=== PATIENT | male | born 1975 | race Caucasian/White ===

== ENCOUNTER 2017-07-24 13:36 | Emergency (ER) | payer MEDICARE, MEDICAID ==
[2017-07-24 14:07] VITALS: BP 147/95
--- NOTE | 2017-07-24 14:14 | UC ---
Dental HPI - HPI Summary HPI Summary: 42 year old male presents with facial pain. c/o L side of face swelling and pain x 1 week. States feels like tooth and ear ache- but has dentures. He does smoke at this time. has had worsened cough as well lately. [ End ] - History of Current Complaint Chief Complaint: UCGeneralIllness Stated Complaint: BUMP ON FACE Time Seen by Provider: 07/24/17 14:08 Hx Obtained From: Patient Onset/Duration: Gradual Onset Pain Scale Used: 0-10 Numeric - 7 Aggravating: Chewing Alleviating: Nothing - Allergies/Home Medications Allergies/Adverse Reactions: Allergies Allergy/AdvReac Type Severity Reaction Status Date / Time No Known Allergies Allergy Verified 07/24/17 14:02 Home Medications: Home Medications Ketorolac TAB * [Toradol TAB *] 10 mg PO Q6H PRN 07/24/17 [History Confirmed ] PMH/Surg Hx/FS Hx/Imm Hx Previously Healthy: Yes Respiratory History: COPD, Bronchitis, Pneumonia - Surgical History Surgical History: None - Family History Known Family History: Positive: Cardiac Disease, Hypertension, Diabetes - Social History Lives: With Family Alcohol Use: None Substance Use Type: Marijuana Substance Use Comment - Amount & Last Used: "once in awhile" Smoking Status (MU): Heavy Every Day Tobacco Smoker Type: Cigarettes Amount Used/How Often: 1 1/2 PPD Length of Time of Smoking/Using Tobacco: 17 Years Have You Smoked in the Last Year: Yes Cessation Counseling: Patient Advised to Stop - Immunization History Most Recent Influenza Vaccination: Not the 2015/2016 Season Review of Systems ENT: Sinus Congestion, Sinus Pain/Tenderness Respiratory: Cough All Other Systems Reviewed And Are Negative: Yes Physical Exam Triage Information Reviewed: Yes Appearance: Well-Appearing, Well-Nourished, Pain Distress - moderate Vital Signs: Initial Vital Signs Temp 98.4 F 07/24/17 14:03 Pulse 96 07/24/17 14:03 Resp 16 07/24/17 14:03 BP 147/95 07/24/17 14:03 Pulse Ox 96 07/24/17 14:03 Vital Signs Reviewed: Yes Eye Exam: Normal ENT Exam: Normal Dental: Positive: Other: - dentures and left sided pre auricular lymph node tenderness and swelling present as well as maxillary sinus tenderness Neck exam: Normal Neck: Positive: Supple, Nontender Respiratory Exam: Normal Respiratory: Positive: No respiratory distress, No accessory muscle use, Wheezing, Expiration Cardiovascular Exam: Normal Abdominal Exam: Normal Musculoskeletal Exam: Normal Neurological Exam: Normal Psychological Exam: Normal Skin Exam: Normal Dental Complaint Course/Dx - Course Course Of Treatment: Advised if develop SOB / worsened pain or fever to go to ED immediatly. No abscess palpable or other skin changes. QUIT SMOKING !!!! - Differential Dx/Diagnosis Differential Diagnosis/Dx: Dental Abscess, Dental Caries, Peridontic Disease, Peritonsillar Abcess, Tonsillitis Provider Diagnoses: Lymphadenopathy with bronchitis with history of COPD AND elevated Blood pressure due to pain / setting in the urgent care Discharge - Discharge Plan Condition: Good Disposition: HOME Prescriptions: Doxycycline Hyclate [Morgidox [id number]] 100 mg PO BID #20 cap Methylprednisolone [Medrol Dosepak 4 MG*] 0 mg PO .SEE NINA INSTRUCTION #1 tab Patient Education Materials: Adenitis (ED) Referrals: Palmer Lanza MD [Primary Care Provider] - 1 Day Additional Instructions: If your pain worsens or you develop a fever please go to the Emergency room for immediate work up that may include blood work
[2017-07-24] MEDS ORDERED: HYDROcodone/ACETAMIN 5-325 MG* 1 TAB PO ONE (14:17)
== END 2017-07-24 14:31 | disposition home or self-care (01) ==
LOC: UCCORT 13:36
DX: J40 Bronchitis, not specified as acute or chronic (principal); R59.1 Generalized enlarged lymph nodes; J44.9 Chronic obstructive pulmonary disease, unspecified; I10 Essential (primary) hypertension; F12.90 Cannabis use, unspecified, uncomplicated; F17.210 Nicotine dependence, cigarettes, uncomplicated; Z71.6 Tobacco abuse counseling
CPT/HCPCS: 99212; G0463